=== PATIENT | female | born 1955 | race Caucasian/White ===

== ENCOUNTER 2020-07-09 14:31 | Emergency (ER) | payer MEDICARE, OTHER ==
[2020-07-09 14:39] VITALS: BP 147/78; PULSE 96
--- NOTE | 2020-07-09 15:45 | EDM.PDOC ---
ED HPI GENERAL MEDICAL PROBLEM - General Chief Complaint: Back Pain or Injury Stated Complaint: fall, back pain Time Seen by Provider: 07/09/20 14:42 Source of Information: Reports: Patient History Limitations: Reports: No Limitations - History of Present Illness INITIAL COMMENTS - FREE TEXT/NARRATIVE: Patient wanted to get checked out for a fall injury that happened 3 days ago. Fell backward/outside on deck/no LOC. Did bump back of head. Initially was doing well. Has stiffened up around back/neck area over the last few days. Her main complaint is the stiffness. Denied any bony pain/limb pain/neck pain at time of incident. Did have discomfort where she bumped her head. Eating/drinking well. No neuro changes. Bit of headache but tolerable/not worsening. Neck Pain Score (Numeric/FACES): 4 - Related Data Allergies Allergy/AdvReac Type Severity Reaction Status Date / Time atorvastatin calcium Allergy Other Verified 08/17/15 14:30 [From Lipitor] ezetimibe [From Zetia] Allergy Muscle Verified 08/17/15 14:30 Aches Home Meds: Home Meds Escitalopram [Lexapro] 20 mg PO DAILY 07/09/20 [History] Rosuvastatin [Crestor] 5 mg PO MOTH 07/09/20 [History] amLODIPine [Norvasc] 2.5 mg PO DAILY 07/09/20 [History] hydroCHLOROthiazide [Hydrochlorothiazide] 25 mg PO DAILY 07/09/20 [History] Past Medical History Cardiovascular History: Reports: High Cholesterol, Other (See Below) Other Cardiovascular History: chronically elevated CK Respiratory History: Reports: Sleep Apnea, Other (See Below) Other Respiratory History: Sleep apnea possible sleep study to be done Genitourinary History: Reports: Other (See Below) Other Genitourinary History: over active bladder [employer] DIRECT[employer] History: Reports: Fibroids, Prolapsed Uterus Musculoskeletal History: Reports: Osteoarthritis Neurological History: Reports: Other (See Below) Other Neuro History: syncopal episode Psychiatric History: Reports: Anxiety, Depression - Infectious Disease History Infectious Disease History: Reports: None - Past Surgical History Female Surgical History: Reports: Hysterectomy Social & Family History - Tobacco Use Tobacco Use Status *Q: Former Tobacco User Years of Tobacco use: 4 Packs/Tins Daily: 1 Used Tobacco, but Quit: Yes Month/Year Tobacco Last Used: 2009 - Caffeine Use Caffeine Use: Reports: Coffee, Tea - Recreational Drug Use Recreational Drug Use: Yes ED ROS GENERAL - Review of Systems Review Of Systems: See Below Constitutional: Reports: No Symptoms HEENT: Reports: No Symptoms. Denies: Vision Change Respiratory: Reports: No Symptoms Cardiovascular: Reports: No Symptoms. Denies: Chest Pain GI/Abdominal: Reports: No Symptoms : Reports: No Symptoms Musculoskeletal: Reports: Neck Pain, Back Pain (upper back), Muscle Stiffness. Denies: Shoulder Pain, Arm Pain, Hand Pain, Leg Pain, Foot Pain, Joint Pain, Joint Swelling, Muscle Pain Skin: Reports: No Symptoms Neurological: Reports: Headache. Denies: Confusion, Dizziness, Numbness, Paresthesia, Seizure, Syncope, Tingling, Tremors, Trouble Speaking, Difficulty Walking, Weakness, Change in Speech, Gait Disturbance Psychiatric: Reports: No Symptoms ED EXAM, GENERAL - Physical Exam Exam: See Below Exam Limited By: No Limitations General Appearance: Alert, No Apparent Distress, Obese Eye Exam: Bilateral Eye: EOMI, PERRL Ears: Normal External Exam, Normal Canal, Hearing Grossly Normal Nose: No: Nasal Deformity, Nasal Swelling, Nasal Drainage Throat/Mouth: Normal Lips, Normal Teeth, Normal Voice, No Airway Compromise Head: Atraumatic, Normocephalic, Other (no swelling/depression back of skull where patient indicated she hit the deck. Some tenderness with palpation of this area. ). No: Facial Swelling, Facial Tenderness Neck: Supple, Tender Lateral (some discomfort/tightness of neck musculature bilaterally). No: Lymphadenopathy (L), Lymphadenopathy (R), Tender Midline Respiratory/Chest: No Respiratory Distress, Lungs Clear, Normal Breath Sounds, No Accessory Muscle Use, Chest Non-Tender Cardiovascular: Regular Rate, Rhythm, No Murmur GI/Abdominal: Soft, Non-Tender, Pelvis Stable (Female) Exam: Deferred Rectal (Female) Exam: Deferred Back Exam: Other (mild tenderness/tightness of upper back musculature bilaterally). No: Muscle Spasm, Vertebral Tenderness Extremities: Normal Inspection, Normal Range of Motion, Non-Tender, No Pedal Edema, Normal Capillary Refill Neurological: Alert, Oriented, CN II-XII Intact, Normal Cognition, Normal Gait, No Motor/Sensory Deficits Psychiatric: Normal Affect, Normal Mood Skin Exam: Warm, Dry, Ecchymosis (minimal small bruise at L-S junction that appears new) Course - Vital Signs Last Recorded V/S: Last Vital Signs Temp 36.6 C 07/09/20 14:31 Pulse 96 07/09/20 14:31 Resp 20 07/09/20 14:31 BP 147/78 H 07/09/20 14:31 Pulse Ox 96 07/09/20 14:31 - Orders/Labs/Meds Orders: Active Orders 24 hr Category Date Time Status C-Spine [Cervical Spine 2V or 3V] [CR] Stat Exams 07/09/20 15:10 Taken - Re-Assessments/Exams Free Text/Narrative Re-Assessment/Exam: C-spine films ordered. Appeared overall unremarkable. Given that pt initially felt pretty good the first few days after the fall, at this time additional imaging is not warranted. No neuro changes/confusion that suggest need of CT of head at this time. Patient declined labs. She has muscle relaxant available for use at home. Also has CBD oil. Declined additional pain meds. Plan made for her to follow up as needed. Recommended possible PT referral from primary provider. She is planning on getting massage this week. To follow up otherwise as needed if any new neuro changes are noted/other concerns develop. Departure - Departure Time of Disposition: 15:42 Disposition: Home, Self-Care 01 Condition: Good Clinical Impression: Fall Qualifiers: Encounter type: initial encounter Qualified Code(s): W19.XXXA - Unspecified fall, initial encounter - Discharge Information *PRESCRIPTION DRUG MONITORING PROGRAM REVIEWED*: Not Applicable *COPY OF PRESCRIPTION DRUG MONITORING REPORT IN PATIENT ADRIANNA: Not Applicable Referrals: Heidy Osorio PA-C [Primary Care Provider] - Forms: ED Department Discharge Additional Instructions: See how you feel this coming week. OK to ice as we discussed. You may benefit from referral to PT and can get that done through the clinic. You may be helped by massage and chiropractor. OK to take your muscle relaxants you have at home. AT this point ok to take Ibuprofen or Aleve. Return to get rechecked if you have any neuro changes like we reviewed as that would indicate a need for a CT study. Follow up as needed with clinic. Follow up in ER if you have sudden problems. Sepsis Event Note (ED) - Evaluation Sepsis Screening Result: No Definite Risk - Focused Exam Vital Signs: Vital Signs Temp Pulse Resp BP Pulse Ox 07/09/20 14:31 36.6 C 96 20 147/78 H 96 - My Orders Last 24 Hours: My Active Orders 07/09/20 15:10 C-Spine [Cervical Spine 2V or 3V] [CR] Stat - Assessment/Plan Last 24 Hours: My Active Orders 07/09/20 15:10 C-Spine [Cervical Spine 2V or 3V] [CR] Stat
== END 2020-07-09 16:00 | disposition home or self-care (01) ==
LOC: LL.ED 14:31
DX: S30.0XXA Contusion of lower back and pelvis, initial encounter (principal); E78.00 Pure hypercholesterolemia, unspecified; F41.9 Anxiety disorder, unspecified; F32.9 Major depressive disorder, single episode, unspecified; Z88.8 Allergy status to other drugs, medicaments and biological substances; Z87.891 Personal history of nicotine dependence; Z79.899 Other long term (current) drug therapy; W19.XXXA Unspecified fall, initial encounter
CPT/HCPCS: 72040; 99283-25

== ENCOUNTER 2022-11-01 12:54 | Day surgery (SDC) | payer MEDICARE ==
[~2022-11-01 12:54] MED LIST: Midazolam 1 MG/ML 2 ML SDV ONE; Propofol 200 MG/20 ML SDV ONE
[2022-11-01] MEDS ORDERED: Sodium Chloride 0.9% 10 ML Syringe FLUSH PRN (14:15)
[2022-11-01] MEDS ORDERED: Lactated Ringers 1,000 ML IV SCH (14:15)
[2022-11-01] MEDS ORDERED: Metoprolol Tartrate 5 MG/5 ML SDV ONE (14:54)
[2022-11-01 15:59] VITALS: BP 139/73; PULSE 63
== END 2022-11-01 16:36 | disposition home or self-care (01) ==
LOC: LL.SDS 12:54
PROVIDERS: ATTEND Surgery
DX: K63.5 Polyp of colon (principal); M79.644 Pain in right finger(s); I10 Essential (primary) hypertension; F41.9 Anxiety disorder, unspecified; E78.5 Hyperlipidemia, unspecified; I25.10 Atherosclerotic heart disease of native coronary artery without angina pectoris; Z79.899 Other long term (current) drug therapy; Z88.8 Allergy status to other drugs, medicaments and biological substances; Z90.710 Acquired absence of both cervix and uterus
CPT/HCPCS: 00812; J2250; J2704; J3490; J7120